=== PATIENT | female | born 1960 | race Two or more races ===

== ENCOUNTER 2024-12-24 21:40 | Emergency (ER) | payer MEDICAID, OTHER ==
[~2024-12-24] VITALS: Ht 165.1 cm; Wt 90.3 kg
[2024-12-25] MEDS: HYDROcodone-ACET 5/325MG TAB PO ONE (01:04)
[2024-12-25 01:05] VITALS: BP 167/100; PULSE 89; RESP 18; TEMP 98.6; O2SAT 94
[2024-12-25] MEDS: TETANUS-DIPTH-ACEL PERTUSSIS 0.5ML SYR Tdap IM ONE (01:05)
--- NOTE | 2024-12-25 01:10 | ED.PDOC ---
History of Present Illness(SKN HPI Comments Pt C/O dog bite to the left forearm. Pt reports dog is vaccinated. Pt has noted 2 lacerations to the left forearm and one puncture wound. Bleeding controlled HAT FORMER. Denies numbness, weakness, or any other known injury. Reports tetanus is greater than 10 years. Chief Complaint: Animal Bite Time Seen by MD: 21:48 History of Present Illness: Nurses Notes, Medications, Allergies Allergies: Coded Allergies: NO KNOWN ALLERGIES (Unverified , 12/24/24) Information Source: Patient Mode of Arrival: Ambulatory Family History Family History: Reviewed,noncontributory to illness, No family hx of Cancer, No family hx of DM, No family hx of Heart alejandra, No family hx of HTN, No family hx ofKidney alejandra, No family hx of Liver alejandra, No family hx of Lung alejandra, No family hx of Stroke Social History Smoker: Non-Smoker Alcohol: Denies ETOH Use Drugs: Denies Drug Use Constitutional: denies: chills, diaphoresis, fatigue, fever, malaise, sweats, weakness, others EENTM: denies: blurred vision, double vision, ear bleeding, ear discharge, ear drainage, ear pain, ear ringing, eye pain, eye redness, hearing loss, mouth pain, mouth swelling, nasal discharge, nose bleeding, nose congestion, nose pain, photophobia, tearing, throat pain, throat swelling, voice changes, others Respiratory: denies: cough, hemoptysis, orthopnea, SOB at rest, shortness of breath, SOB with excertion, stridor, wheezing, others Cardiovascular: denies: chest pain, dizzy spells, diaphoresis, Dyspnea on exertion, edema, irregular heart beat, left arm pain, lightheadedness, palpitations, PND, syncope, others Gastrointestinal: denies: abdomen distended, abdominal pain, blood streaked bowels, constipated, diarrhea, dysphagia, difficulty swallowing, hematemesis, melena, nausea, poor appetite, poor fluid intake, rectal bleeding, rectal pain, vomiting, others Genitourinary: denies: abnormal vagina bleeding, burning, dyspareunia, dysuria, flank pain, frequency, hematuria, incontinence, pain, , vagina discharge, urgency, others Neurological: denies: dizziness, fainting, headache, left sided numbness, left sided weakness, numbness, paresthesia, pre-existing deficit, right sided numbness, right sided weakness, seizure, speech problems, tingling, tremors, weakness, others Musculoskeletal: denies: back pain, gout, joint pain, joint swelling, muscle pain, muscle stiffness, neck pain, others Integumetry: reports: laceration (Left forearm); denies: bruises, change in color, change in hair/nails, dryness, lesions, lumps, rash, wounds, others Allergic/Immunocompromised: denies: Difficulty Healing, Frequent Infections, Hives, Itching, others Hematologic/Lymphatic: denies: anemia, blood clots, easy bleeding, easy bruising, swollen glands, others Endocrine: denies: excessive hunger, excessive sweating, excessive thirst, excessive urination, flushing, intolerance to cold, intolerance to heat, unexplained weight gain, unexplained weight loss, others Psychiatric: denies: anxiety, bipolar disorder, depression, hopeless, panic disorder, schizophrenia, sleepless, suicidal, others Physical Exam General Appearance: No Apparent Distress, Normal HEENT: Pharynx Normal Neck: Full Range of Motion, Non-Tender Respiratory: Lungs Clear, No Respiratory Distress, Normal Breath Sounds Cardiovascular: No Murmur, Normal Peripheral Pulses, Regular Rate/Rhythm Breast Exam: Deferred Gastrointestinal: Non Tender, Soft Genitalia: Deferred Pelvic: Deferred Rectal: Deferred Extremities: Normal capillary refill, Normal inspection, Normal range of motion, Non-tender, No pedal edema Musculoskeletal : Apperance: Normal Neurologic: Alert, extern II-XII nml as Tested, No Motor Deficits, Normal Affect, Normal Mood, No Sensory Deficits Cerebellar Function: Normal Reflexes: Normal Skin: Dry, Lacerations (Full-thickness laceration proximal left forearm bleeding controlled no obvious foreign body noted. Puncture noted to anterior proximal forearm bleeding controlled no noted foreign body.), Normal Color, Warm Lymphatic: No Adenopathy Was a procedure done? Was a procedure done?: Yes Sedation Sedation?: No Informed consent obtained: Yes Laceration Repair : Location Left forearm full-thickness laceration and puncture Length 2.5 cm Anesthetic: Lidocaine, Without epi Laceration Repair Prep: Saline, Betadine Laceration Repair Wound Comple: epidermis/dermis repair Laceration Repair: Number of sutures (6) Informed consent obtained: Yes Risks, benefits, and alternati: Yes Notes Tolerated well with minimal blood loss. Loose suture to encourage drainage Other Procedure Informed consent obtained: Yes Risks, benefits, and alternati: Yes Differential Diagnosis (INTG) Differential Diagnosis: Laceration, Puncture Wound X-Ray, Labs, Meds, VS Vital Signs Date Time Temp Pulse Resp B/P (MAP) Pulse Ox O2 Delivery O2 Flow Rate FiO2 12/25/24 01:05 89 18 94 12/25/24 01:05 98.6 89 18 167/100 (122) 94 98.6 12/24/24 22:25 98.4 105 16 172/105 (127) 95 Current Medications Medications (Trade) Dose Ordered Sig/Mendel Route Start Time Stop Time Status Last Admin Acetaminophen/ Hydrocodone Bitart ([facility] 5/325MG Tab) 2 tab ONCE ONCE PO 12/25/24 01:00 12/25/24 01:01 DC 12/25/24 01:04 Diphtheria/ Tetanus/Acell Pertussis (Boostrix T-Dap) 0.5 ml ONCE ONCE IM 12/25/24 01:00 12/25/24 01:01 DC 12/25/24 01:05 X-Ray, Labs, Meds, VS Comment See procedure note. Prophylactic Augmentin x7 days. Script for pain. In 7-10 days advised to follow up with PCP in 2-4 days for wound re-evaluation or urgent care or back here in the ER return precautions given patient indicates understanding agrees with discharge plan of care. Time of 1ST Reevaluation: 01:52 Reevaluation 1ST: Improved Patient Education/Counseling: Diagnosis, Treatment, Prognosis, Need For Follow Up Family Education/Counseling: No Family Present Departure 1 Departure Time of Disposition: 01:48 Impression: Primary Impression: Dog bite of arm Qualified Codes: S41.152A - Open bite of left upper arm, initial encounter; W54.0XXA - Bitten by dog, initial encounter Disposition: 01 HOME / SELF CARE / HOMELESS Condition: Stable e-Prescriptions Ibuprofen (Ibuprofen) 800 Mg Tab 1 TAB PO TID PRN for 5 Days, #15 TAB Prov: BREANNE MARCUS 12/25/24 Amoxicillin & Pot Clavulanate (AUGMENTIN TABLET) 875 Mg Tb 875 MG PO BID for 7 Days, #14 TAB Prov: BREANNE MARCUS 12/25/24 Discharged With: Spouse Critical Care Note Critical Care Time?: No Stability Stability form required: BREANNE Iniguez Dec 25, 2024 01:10
[2024-12-25] MEDS: LIDOCAINE 1% HCL (LOCAL ANESTH.) INJ 20ML MDV ID ONE (01:12)
[2024-12-25] MEDS ORDERED: IBUP-1456 PO (01:52)
[2024-12-25] MEDS ORDERED: AUG875T PO (01:52)
== END 2024-12-25 02:25 | disposition home or self-care (01) ==
LOC: ER 21:40
DX: S51.812A Laceration without foreign body of left forearm, initial encounter (principal); W54.0XXA Bitten by dog, initial encounter; Y93.89 Activity, other specified; Y92.89 Other specified places as the place of occurrence of the external cause; Y99.8 Other external cause status
CPT/HCPCS: 12001; 90471; 90715; 99283; J2003